=== PATIENT | female | born 1965 | race Caucasian/White ===

== ENCOUNTER → 2024-02-12 15:49 | Outpatient (REF) | payer OTHER, SELFPAY | LOC: RAD 15:49 | PROVIDERS: ATTENDING PHYSICIAN Nurse Practitioner Primary Care | DX: E04.1 Nontoxic single thyroid nodule (principal) | CPT/HCPCS: 76536 ==

== ENCOUNTER → 2024-04-17 12:00 | Outpatient (REF) | payer OTHER, SELFPAY | LOC: HWRAD 12:00 | PROVIDERS: ATTENDING PHYSICIAN Nurse Practitioner Primary Care | DX: R91.1 Solitary pulmonary nodule (principal); F17.210 Nicotine dependence, cigarettes, uncomplicated; Z12.31 Encounter for screening mammogram for malignant neoplasm of breast | CPT/HCPCS: 71250; 77063; 77067 ==

== ENCOUNTER → 2024-04-25 10:05 | Outpatient (REF) | payer OTHER, SELFPAY | LOC: WDC 10:05 | PROVIDERS: ATTENDING PHYSICIAN Nurse Practitioner Primary Care | DX: R92.8 Other abnormal and inconclusive findings on diagnostic imaging of breast (principal) | CPT/HCPCS: 76642 ==

== ENCOUNTER 2024-04-26 07:27 | Outpatient (RCR) | payer OTHER, SELFPAY | END 2024-04-26 23:59 | disposition home or self-care (01) | LOC: RPT 07:27 | PROVIDERS: ATTENDING PHYSICIAN Orthopaedic Surgery; FAMILY PHYSICIAN Nurse Practitioner Primary Care | DX: M54.50 Low back pain, unspecified (principal); Z73.6 Limitation of activities due to disability | CPT/HCPCS: 97112; 97162 ==

== ENCOUNTER 2024-04-30 07:57 | Outpatient (RCR) | payer OTHER, SELFPAY | END 2024-05-27 06:27 | disposition home or self-care (01) | LOC: RPT 07:57 | PROVIDERS: ATTENDING PHYSICIAN Orthopaedic Surgery; FAMILY PHYSICIAN Nurse Practitioner Primary Care | DX: M54.50 Low back pain, unspecified (principal); Z73.6 Limitation of activities due to disability | CPT/HCPCS: 97010; 97110; 97112 ==

== ENCOUNTER → 2025-03-20 07:58 | Outpatient (REF) | payer OTHER, SELFPAY ==
[2025-03-20 09:39] LABS: % Basophils 0.4 % (0-2); % Eosinophils 1.9 % (0-6); % Immature Granulocytes 0.1 % (0-0.5); % Lymphocytes 29.3 % (20.5-51.1); % Monocytes 7.2 % (1.7-9.3); % Neutrophils 61.1 % (42.2-75.2); Absolute Eosinophils 0.1 10^3/uL (0-0.7); Absolute Lymphocytes 2.2 10^3/uL (1.2-3.4); Absolute Monocytes 0.5 10^3/uL (0.1-0.6); Absolute Neutrophils 4.6 10^3/uL (1.4-6.5); Hematocrit 43.5 % (37.0-47.0); Hemoglobin 14.6 g/dL (12.0-16.0); Mean Corp Hgb Conc. 33.6 g/dL (33.0-37.0); Mean Corpuscular Hgb 30.2 pg (27.0-31.0); Mean Corpuscular Volume 89.9 fL (81.0-99.0); Nucleated Red Blood Cells % 0 %; Platelet Count 211 10^3/uL (130-400); Red Blood Cell Count 4.84 10^6/uL (4.20-5.40); Red Cell Dist. Width 12.2 % (11.5-14.5); White Blood Cell Count 7.5 10^3/uL (4.8-10.8)
[2025-03-20 10:36] LABS: Blood Urea Nitrogen 13 mg/dl (7-17); Calcium 9.6 mg/dl (8.4-10.2); Carbon Dioxide 27 mmol/L (22-30); Chloride 108 mmol/L (98-107); Glucose 113 mg/dl (70-99); Potassium 4.2 mmol/L (3.5-5.1); Sodium 142 mmol/L (135-145); eGFR > 60.00
[2025-03-20 11:51] LABS: Glycohemoglobin (HgbA1c) 5.9 % (4.0-5.6)
== END ==
LOC: REG 07:58
PROVIDERS: ATTENDING PHYSICIAN Nurse Practitioner Adult Health
DX: Z01.818 Encounter for other preprocedural examination (principal)
CPT/HCPCS: 36415; 80048; 83036; 85025; 93005

== ENCOUNTER 2025-04-02 06:47 | Emergency (ER) | payer OTHER, SELFPAY ==
[2025-04-02 07:05] VITALS: BP 107/68
--- NOTE | 2025-04-02 07:39 | ED.GENMED ---
History of Present Illness
General
Chief Complaint: Musculo-Skeletal Complaint
Time Seen by Provider: 04/02/25 07:13
History of Present Illness
History of Present Illness:
59-year-old female presents the emergency department for evaluation of right shoulder pain. She states that she ran into a door frame 3 weeks ago causing mild pain however over the past several days pain is worsened despite no new trauma. She is
unable to raise the shoulder without significant discomfort. Notes that she is on opioids for low back pain and is undergoing a spinal surgery in 5 days at [facility] orthopedic. She did take a dose of ibuprofen today without improvement. Has no
associated fevers or chills. No chest pain.
Past History
Past History
ED Past Medical History: Hypercholesterolemia and Other (Fibromyalgia)
ED Past Surgical History: None
Social History
Tobacco: Smoker
Alcohol: Occasional
Drug: None
Personal:
Living: with family
Employment: Other
Family History
Family History: Other (Noncontributory)
Review of Systems
Review of Systems
Allergies reviewed?: Yes
All Other Systems: ROS reviewed and negative except as documented in HPI and ROS
Phy Exam
Physical Exam
Physical Exam:
GEN: Well appearing, NAD, WDWN
HEENT: Oral mucosa moist, no scleral icterus
Cardiac: Regular rate
Lung: No respiratory distress, no tachypnea
MSK: No gross deformity or injuries. Passive range of motion of right shoulder is normal with no significant pain, patient displays 4 out of 5 strength in all wills of shoulder range of motion however this is limited by discomfort. Strong radial
pulse on the right with digital sensation
Skin: Good color, no pallor or jaundice, no rashes
Neuro: AO x3, moves all extremities freely
Psych: Calm, cooperative
Course
Orders/Labs/Results
Orders:
Orders
04/02/25 07:09
CR Shoulder - Right Min 2 View Urgent
Comment:
Reason For Exam: hit wall with shoulder
Vital Signs
Initial and Last Documented VS:
Initial Vital Signs
Temp Pulse Resp BP Pulse Ox
98.2 F 55 20 107/68 100
04/02/25 07:05 04/02/25 07:05 04/02/25 07:05 04/02/25 07:05 04/02/25 07:05
Last Documented Vital Signs
Temp Pulse Resp BP Pulse Ox
98.2 F 55 20 107/68 100
04/02/25 07:05 04/02/25 07:05 04/02/25 07:05 04/02/25 07:05 04/02/25 07:05
MDM/Problems Addressed
MDM/Problems Addressed:
X-rays independently interpreted by me are unremarkable. Will normally advise NSAIDs however given her upcoming spinal procedure I do not feel that this is appropriate, will prescribe opiates for pain and recommend outpatient orthopedic follow-up
*Critical Care Note
Total Time (30-74mins, 75-104mins- exclusive of procedures): Not Applicable
ED Attending Note
-
Portions of this chart may have been created with voice recognition software.� Occasional wrong word or��sound alike� substitutions may have occurred due to the inherent limitations of voice recognition software.
Discharge Plan
Departure
Patient Disposition: Home (Routine Discharge)
Date of Disposition: 04/02/25
Time of Disposition: 07:39
Patient with high blood pressure during this ER visit?: No
Discharge Problem:
Acute pain of right shoulder
Instructions: Shoulder pain - ED discharge instructions
Prescriptions:
New
oxycodone 5 mg tablet
5 mg PO Q8H PRN (Reason: Pain) Qty: 10 0RF
No Action
clonazepam 0.5 MG tablet
0.5 mg PO PRN PRN (Reason: anxiety)
hydrocodone-acetaminophen 1 EACH tablet
1 ea PO PRN PRN (Reason: pain)
hydrocodone-acetaminophen [Vicodin] 1 EACH tablet
1 ea PO Q4 PRN (Reason: pain) Qty: 5 0RF
Activity Restrictions/Additional Instructions:
Follow-up with your orthopedic care and discuss how this may impact your upcoming spine procedure
Do not take any NSAIDs (ibuprofen, Aleve, aspirin) with your upcoming spine procedure
Interventions
Interventions:
*Risk Screen - Suicide Last Done: 04/02/25 07:05
*General Assessment Last Done: 04/02/25 07:05
*Neglect/Abuse Screening Last Done: 04/02/25 07:05
*Nursing Disposition Last Done: 04/02/25 07:59
ED-Musculoskeletal Assessment Last Done: 04/02/25 07:58
Discharge Date and Time
Discharge Date/Time: 04/02/25 07:59
Print Language: SINHALA
== END 2025-04-02 07:59 | disposition home or self-care (01) ==
LOC: EMR 06:47
PROVIDERS: EMERGENCY PHYSICIAN Emergency Medicine; FAMILY PHYSICIAN Nurse Practitioner Primary Care
DX: M25.511 Pain in right shoulder (principal); W22.01XA Walked into wall, initial encounter; E78.00 Pure hypercholesterolemia, unspecified; M79.7 Fibromyalgia; F17.200 Nicotine dependence, unspecified, uncomplicated
CPT/HCPCS: 99283; 73030

== ENCOUNTER 2025-07-01 11:15 | Emergency (ER) | payer OTHER, SELFPAY ==
[2025-07-01 11:20] VITALS: BP 92/69
[2025-07-01 12:21] VITALS: BP 187/102
[2025-07-01 13:00] VITALS: BP 165/110
--- NOTE | 2025-07-01 13:19 | ED.GENMED ---
History of Present Illness
General
Chief Complaint: Chest Pain
Source: patient
Exam Limitations: none
Time Seen by Provider: 07/01/25 12:36
Nursing documentation reviewed up to this point in time: agreed with
History of Present Illness
History of Present Illness:
Patient is a 60-year-old female with past medical history of hyperlipidemia ND, lumbar fusion(April 07) , depression bipolar, fibromyalgia,presents to the ER for evaluation of left-sided back pain. She has had left-sided back pain for the past
several days worse last night. It is worse with any type of movement twisting turning. She denies any trauma fall or injury.
She has had bodyaches as well however her family doctor stopped her statin 2 weeks ago. pt c/o of aches and pains' all over,' however this is not new. She is presenting here for evaluation of this left sided back pain
Past History
Past History
ED Past Medical History: Hypercholesterolemia and Other (Fibromyalgia)
ED Past Surgical History: None
Social History
Tobacco: Smoker
Alcohol: Occasional
Drug: None
Personal:
Living: with family
Employment: Other
Family History
Family History: Other (Noncontributory)
Phy Exam
General Physical Exam
General Presentation: no apparent distress
General age: appears stated age
General Skin: warm and dry
General Habitus: normal
General Mental: alert
General Hydration: appears well hydrated
Cardiovascular Exam
Cardiovascular Exam: regular rate/rhythm, no murmur and normal peripheral pulses
Pulmonary Exam
Pulmonary Exam: lungs clear and no respiratory distress
Neurological Exam
Neurological Exam: alert and oriented x3
Musculoskeletal Exam
Musculoskeletal Exam: other (Tender throughout the left parathoracic and paralumbar muscles no rash to back; patient complains of back pain to this area when sitting up and moving in the stretcher )
Skin Exam
Skin Exam: normal color and warm/dry
Psychiatric Exam
Psychiatric Exam: normal mood/affect
Scores
Heart Score for Chest Pain Patients
STEMI patient?: Not applicable
Course
Orders/Labs/Results
Orders:
Orders
07/01/25 11:15
Electrocardiogram (*1) Urgent
Reason for Study: Chest Pain
EKG- Treatment ONCE
07/01/25 13:16
Cardiac Monitoring- Treatment ONCE
IV Insert/Care/Rem.- Treatment PRN
O2 Therapy [RESP] Urgent
Titrate/Wean O2 to maintain O2 sat greater than (%): 90
Special Instructions: Maintain sats >/=90%
Pulse Ox/spot Check [RESP] Urgent
Quantity: 1
Special Instructions: ON ROOM AIR
07/01/25 13:27
Complete Blood Count/With Diff Urgent
Comprehensive Metabolic Panel Urgent
Troponin I Urgent
07/01/25 13:43
DDimer [D-Dimer] Urgent
07/01/25 13:45
UA Reflex to Culture [Urinalysis Reflex To Culture] Urgent
Date Specimen was Collected: 07/01/25
Time Specimen was Collected: 13:43
07/01/25 14:01
Ketorolac [Toradol] 15 mg IV NOW STA
07/01/25 14:27
Chest [CR Chest - 2 Views ] Urgent
Comment:
Reason For Exam: pain
07/01/25 15:13
diazePAM [Valium Injection] 2 mg IV NOW STA
Abnormal Lab Results
07/01/25
13:27
Chloride 108 H mmol/L
(98-107)
07/01/25 13:27
07/01/25 13:27
Vital Signs
Initial and Last Documented VS:
Initial Vital Signs
Temp Pulse Resp BP Pulse Ox
98.1 F 54 18 92/69 100
07/01/25 11:20 07/01/25 11:20 07/01/25 11:20 07/01/25 11:20 07/01/25 11:20
Last Documented Vital Signs
Temp Pulse Resp BP Pulse Ox
98.1 F 56 15 198/97 94
07/01/25 11:20 07/01/25 15:45 07/01/25 15:45 07/01/25 14:00 07/01/25 15:45
MDM/Problems Addressed
Differential Diagnosis Includes:
Not limited to muscular pain, pneumonia, PE
MDM/Problems Addressed:
Symptoms are consistent with muscular back pain. Patient has pain with any type of movement ;denies actual shortness of breath felt slight discomfort with deep breath. She is nontachycardic nontachypneic D-dimer negative. She did receive Toradol
here feeling better will also add on Valium. She does have muscle relaxer at home. With improvement due to Toradol will have patient continue NSAIDs at home. Negative findings on chest x-ray. She is in no acute distress afebrile white count
normal urinalysis negative including negative for hematuria back pain not consistent with renal colic pain is worse with any type of movement twisting. No obvious rash on exam no obvious injury
*Radiology
Radiology exam reviewed: radiology read reviewed
*Pulse Oximetry
SaO2: 98
Oxygen Mode of Delivery: Room air
Patient hypoxic: no
*EKG
Interpreted by ED Provider?: Yes
Comparison EKG: no changes
Heart Rate: 49
Rate: bradycardiac
Rhythm: sinus
*Critical Care Note
Total Time (30-74mins, 75-104mins- exclusive of procedures): Not Applicable
ED Attending Note
-
Portions of this chart may have been created with voice recognition software.� Occasional wrong word or��sound alike� substitutions may have occurred due to the inherent limitations of voice recognition software.
Discharge Plan
Departure
Patient Disposition: Home (Routine Discharge)
Date of Disposition: 07/01/25
Time of Disposition: 15:33
Patient with high blood pressure during this ER visit?: Yes
Condition: Fair
Covid-19: Not Applicable
Discharge Problem:
Back pain
Instructions: Back Pain
Prescriptions:
No Action
clonazepam 0.5 MG tablet
0.5 mg PO PRN PRN (Reason: anxiety)
hydrocodone-acetaminophen 1 EACH tablet
1 ea PO PRN PRN (Reason: pain)
hydrocodone-acetaminophen [Vicodin] 1 EACH tablet
1 ea PO Q4 PRN (Reason: pain) Qty: 5 0RF
oxycodone 5 mg tablet
5 mg PO Q8H PRN (Reason: Pain) Qty: 10 0RF
Referrals:
Dee Dee Ogden CRNP [Family Provider, Internal Medicine]
Activity Restrictions/Additional Instructions:
As discussed ibuprofen 600 mg every 8 hours with food.
You may continue to take your muscle relaxer.
Follow-up with your family doctor the next 1 -2 days.
return if any worsening of symptoms.
Interventions
Interventions:
*Risk Screen - Suicide Last Done: 07/01/25 11:27
*Neglect/Abuse Screening Last Done: 07/01/25 11:27
*Nursing Disposition Last Done: 07/01/25 16:02
ED- Cardiac Assessment Last Done: 07/01/25 13:34
Discharge Date and Time
Discharge Date/Time: 07/01/25 16:03
Print Language: GREENLANDIC
[2025-07-01 13:23] VITALS: BP 159/94
[2025-07-01 13:28] VITALS: BMI 23.3
[2025-07-01 13:34] LABS: Hematocrit 39.3 % (37.0-47.0); Hemoglobin 13.0 g/dL (12.0-16.0); Mean Corp Hgb Conc. 33.1 g/dL (33.0-37.0); Mean Corpuscular Volume 89.7 fL (81.0-99.0); Nucleated Red Blood Cells % 0 %; Platelet Count 164 10^3/uL (130-400); Red Cell Dist. Width 12.4 % (11.5-14.5)
[2025-07-01 13:56] LABS: Urine Character Clear (Clear)
[2025-07-01 13:57] LABS: ALT (SGPT) 20 U/L (0-35); AST (SGOT) 19 U/L (14-36); Albumin 4.2 g/dl (3.5-5.0); Alkaline Phosphatase 55 U/L (38-126); Blood Urea Nitrogen 12 mg/dl (7-17); Calcium 9.1 mg/dl (8.4-10.2); Carbon Dioxide 27 mmol/L (22-30); Chloride 108 mmol/L (98-107); Estimated Creatinine Clearance 83 ml/min; Glucose 85 mg/dl (70-99); Potassium 4.0 mmol/L (3.5-5.1); Sodium 138 mmol/L (135-145); Total Protein 6.3 g/dl (6.3-8.2); eGFR > 60.00
[2025-07-01 14:00] VITALS: BP 198/97
[2025-07-01 14:00] LABS: Troponin I < 0.012 ng/ml
[2025-07-01] MEDS: TORADOL 15 MG IV (14:06)
[2025-07-01 14:11] LABS: D-Dimer 0.35 ug/mlFEU (0.00-0.50)
[2025-07-01] MEDS: VALIUM INJECTION 2 MG IV (15:24)
== END 2025-07-01 16:03 | disposition home or self-care (01) ==
LOC: EMR 11:15
PROVIDERS: Nurse Practitioner; EMERGENCY PHYSICIAN Emergency Medicine; FAMILY PHYSICIAN Nurse Practitioner Primary Care
DX: M54.9 Dorsalgia, unspecified (principal); R07.89 Other chest pain; E78.00 Pure hypercholesterolemia, unspecified; I25.2 Old myocardial infarction; F31.9 Bipolar disorder, unspecified; M79.7 Fibromyalgia; F17.200 Nicotine dependence, unspecified, uncomplicated; Z91.128 Patient's intentional underdosing of medication regimen for other reason
CPT/HCPCS: 99283; 96374; 96375; 71046; 80053; 81003; 84484; 85025; 85379; 93005

== ENCOUNTER → 2025-07-07 13:46 | Outpatient (REF) | payer OTHER, SELFPAY | LOC: RAD 13:46 | PROVIDERS: ATTENDING PHYSICIAN Nurse Practitioner Primary Care | DX: R91.1 Solitary pulmonary nodule (principal); R10.84 Generalized abdominal pain; R63.4 Abnormal weight loss; R05.3 Chronic cough; R10.9 Unspecified abdominal pain | CPT/HCPCS: 71260; 74177; Q9967 ==

== ENCOUNTER 2025-07-10 11:14 | Emergency (ER) | payer OTHER, SELFPAY ==
[2025-07-10 11:17] VITALS: BP 152/96
--- NOTE | 2025-07-10 12:49 | ED.GENMED ---
History of Present Illness
General
Chief Complaint: Fatigue
Source: patient
Exam Limitations: none
Time Seen by Provider: 07/10/25 12:33
History of Present Illness
History of Present Illness:
60-year-old female presents with ongoing symptoms that she has had for weeks if not longer. Fatigue weakness ongoing flank pain nausea weight loss. Was seen here July 01 with a negative workup including cardiac D-dimer labs. Had an outpatient
CT done done by her primary [address] was suspicious for malignancy in the transverse colon. Stable pulmonary nodules. Mass in the left ovary. They had recommended follow-up ultrasound and colonoscopy. She has a scheduled appointment for
GI in October. She is frustrated with ongoing symptoms also complaining of headache.
Past History
Past History
ED Past Medical History: Hypercholesterolemia, Other (Cardiomyopathy) and Other (Fibromyalgia)
ED Past Surgical History: Gynecological, Orthopedic and Other (Cataract)
Social History
Tobacco: Former smoker
Alcohol: Occasional
Drug: None
Personal:
Living: with family
Employment: Other
Family History
Family History: Other (Noncontributory)
Review of Systems
Review of Systems
All Other Systems: Not applicable
Constitutional: Reports weight loss; Denies fever
Respiratory: Reports no symptoms
Cardiac: Reports no symptoms
Phy Exam
Physical Exam
Physical Exam:
GENERAL: Alert and oriented in no apparent distress
EYE: Orbits normal.
NECK: Supple, no thyroid palpable
ENT: Pharynx without erythema
CARDIAC: Regular rate and rhythm without any obvious murmurs.
LUNGS: Clear breath sounds,normal
ABDOMEN: Soft, without focal tenderness or distention
NEUROLOGICAL: Alert and oriented , grossly non-focal
SKIN: Warm and dry, no rash or lesion, no discoloration, skin intact.
MUSCULOSKELETAL: No edema,no deformity.Good color
PSYCH: Normal and appropriate interaction.
Course
Orders/Labs/Results
Orders:
Orders
07/10/25 12:46
0.9% Sodium Chloride 1000 ml [Nss] 1,000 ml IV BOLUS
US Pelvis W Transvag Combined Urgent
Comment:
Reason For Exam: Left ovarian mass/fatigue/weakness
07/10/25 13:06
Complete Blood Count/With Diff Urgent
Comprehensive Metabolic Panel Urgent
TSH Reflex To Free T4 Urgent
Abnormal Lab Results
07/10/25
13:06
Glucose 113 H mg/dl
(70-99)
07/10/25 13:06
07/10/25 13:06
Vital Signs
Initial and Last Documented VS:
Initial Vital Signs
Temp Pulse Resp BP Pulse Ox
98.2 F 68 16 152/96 98
07/10/25 11:17 07/10/25 11:17 07/10/25 11:17 07/10/25 11:17 07/10/25 11:17
Last Documented Vital Signs
Temp Pulse Resp BP Pulse Ox
98.2 F 63 23 157/95 98
07/10/25 11:17 07/10/25 15:45 07/10/25 15:45 07/10/25 15:00 07/10/25 12:52
MDM/Problems Addressed
Differential Diagnosis Includes:
Patient describing fatigue weakness weight loss. Would be concerning for some underlying malignancy. Not convinced we can make a definitive diagnosis in the ER. She is clinically stable. Recent labs have all been stable. CT was done 2 days ago.
We will check her thyroid recheck her electrolytes. To kind of expedite her workup we will get the ultrasound of her pelvis for this questionable ovarian lesion. Also contact GI hoping they can get her in sooner. Explained to her that we are
unlikely to make a definitive diagnosis today however
*Radiology
Radiology exam reviewed: radiology read reviewed (Sick centimeter left ovarian cyst. Right adnexal mass likely fibroid)
*Pulse Oximetry
SaO2: 98
Oxygen Mode of Delivery: Room air
Patient hypoxic: no
*Critical Care Note
Total Time (30-74mins, 75-104mins- exclusive of procedures): Not Applicable
Data Reviewed
Review of Other/Old Records Reveals: Labs, Records, Radiology Studies and Testing
Update Note
Update Note:
Patient has remained stable. Ambulated to the bathroom without difficulty. Copy of ultrasound report given. Needs follow-up with [employer]. Short-term follow-up with GI will be seen next week. Medically stable for discharge to follow-up
ED Attending Note
-
Portions of this chart may have been created with voice recognition software.� Occasional wrong word or��sound alike� substitutions may have occurred due to the inherent limitations of voice recognition software.
Discharge Plan
Departure
Patient Disposition: Home (Routine Discharge)
Date of Disposition: 07/10/25
Time of Disposition: 15:58
Patient with high blood pressure during this ER visit?: Yes
Discharge Problem:
Fatigue/weakness, Transverse colon thickening, Left ovarian cyst, Right adnexal mass, Thyroid nodule
Instructions: Fatigue (DC), Generalized Weakness (DC), BLOOD PRESSURE
Prescriptions:
No Action
clonazepam 0.5 MG tablet
0.5 mg PO PRN PRN (Reason: anxiety)
hydrocodone-acetaminophen 1 EACH tablet
1 ea PO PRN PRN (Reason: pain)
hydrocodone-acetaminophen [Vicodin] 1 EACH tablet
1 ea PO Q4 PRN (Reason: pain) Qty: 5 0RF
oxycodone 5 mg tablet
5 mg PO Q8H PRN (Reason: Pain) Qty: 10 0RF
Referrals:
Dee Dee Ogden CRNP [Family Provider, Internal Medicine] - Follow up in 2-3 days
Reyna Gaona MD [Active, Gynecology] - Follow up in 1 week
Activity Restrictions/Additional Instructions:
Follow-up with your scheduled appointment with a telesales consultant next week
Listed above is a [employer] the physician to call for follow-up with the ultrasound
Also follow-up closely with your primary physician
Interventions
Interventions:
*Risk Screen - Suicide Last Done: 07/10/25 11:17
*General Assessment Last Done: 07/10/25 13:10
*Neglect/Abuse Screening Last Done: 07/10/25 11:17
*ED- Fall Risk Assessment Last Done: 07/10/25 13:10
*ED COVID-19 Vaccine History Last Done: 07/10/25 13:10
Discharge Date and Time
Print Language: SETS[place]
[2025-07-10] MEDS: NSS 1000 IV (13:06)
[2025-07-10 13:08] VITALS: BMI 23.5
[2025-07-10 13:13] LABS: Hematocrit 40.8 % (37.0-47.0); Hemoglobin 13.6 g/dL (12.0-16.0); Mean Corp Hgb Conc. 33.3 g/dL (33.0-37.0); Mean Corpuscular Volume 88.5 fL (81.0-99.0); Nucleated Red Blood Cells % 0 %; Platelet Count 183 10^3/uL (130-400); Red Cell Dist. Width 12.1 % (11.5-14.5)
[2025-07-10 13:36] LABS: ALT (SGPT) 19 U/L (0-35); AST (SGOT) 20 U/L (14-36); Albumin 4.5 g/dl (3.5-5.0); Alkaline Phosphatase 49 U/L (38-126); Blood Urea Nitrogen 14 mg/dl (7-17); Calcium 9.5 mg/dl (8.4-10.2); Carbon Dioxide 26 mmol/L (22-30); Chloride 106 mmol/L (98-107); Estimated Creatinine Clearance 90 ml/min; Glucose 113 mg/dl (70-99); Potassium 4.0 mmol/L (3.5-5.1); Sodium 138 mmol/L (135-145); Total Protein 6.8 g/dl (6.3-8.2); eGFR > 60.00
[2025-07-10 14:33] VITALS: BP 177/101
[2025-07-10 15:00] VITALS: BP 157/95
[2025-07-10 16:15] VITALS: BP 158/116
[2025-07-10 16:35] VITALS: BP 169/105
[2025-07-10 17:00] VITALS: BP 160/105
== END 2025-07-10 17:21 | disposition home or self-care (01) ==
LOC: EMR 11:14
PROVIDERS: EMERGENCY PHYSICIAN Emergency Medicine; FAMILY PHYSICIAN Nurse Practitioner Primary Care
DX: R53.1 Weakness (principal); K63.89 Other specified diseases of intestine; N83.202 Unspecified ovarian cyst, left side; E04.1 Nontoxic single thyroid nodule; N94.89 Other specified conditions associated with female genital organs and menstrual cycle; E78.00 Pure hypercholesterolemia, unspecified; M79.7 Fibromyalgia; Z87.891 Personal history of nicotine dependence
CPT/HCPCS: 96360; 99284; 76830; 76856; 80053; 84443; 85025

== ENCOUNTER → 2025-07-12 09:01 | Outpatient (REF) | payer OTHER, SELFPAY | LOC: RCS 09:01 | PROVIDERS: ATTENDING PHYSICIAN Nurse Practitioner Primary Care | DX: R00.2 Palpitations (principal) | CPT/HCPCS: 93225; 93226 ==

== ENCOUNTER 2025-07-21 06:34 | Day surgery (SDC) | payer OTHER, SELFPAY | END 2025-07-21 14:57 | disposition home or self-care (01) | LOC: GI 06:34 | PROVIDERS: ATTENDING PHYSICIAN Internal Medicine | DX: Z12.11 Encounter for screening for malignant neoplasm of colon (principal); K63.5 Polyp of colon; K62.1 Rectal polyp; K64.8 Other hemorrhoids; R63.4 Abnormal weight loss; R93.3 Abnormal findings on diagnostic imaging of other parts of digestive tract | CPT/HCPCS: 45385; 88305 ==

== ENCOUNTER → 2025-08-04 19:03 | Outpatient (REF) | payer OTHER, SELFPAY | LOC: MRI 19:03 | PROVIDERS: ATTENDING PHYSICIAN Nurse Practitioner Primary Care | DX: R63.4 Abnormal weight loss (principal); N94.89 Other specified conditions associated with female genital organs and menstrual cycle; N32.89 Other specified disorders of bladder; R14.0 Abdominal distension (gaseous) | CPT/HCPCS: 72146; 72197; A9575 ==